=== PATIENT | female | born 1990 | race Caucasian/White ===

== ENCOUNTER 2018-06-21 09:42 | Inpatient (IN) | payer MEDICAID ==
[~2018-06-21] VITALS: Ht 144.8 cm; Wt 69.0 kg
[~2018-06-21 09:42] MED LIST: FERR27TA PO; PREN1TAB49 PO
[2018-06-21 10:02] VITALS: Ht 144.8 cm; Wt 69.0 kg
[2018-06-21] MEDS: LACTATED RINGER'S 1,000 ML IV SCH ×2 (10:39→23:00)
[2018-06-21] MEDS ORDERED: LIDOCAINE 1% (MPF) 30 ML INJ INJ PRN (11:00)
[2018-06-21] MEDS ORDERED: AMPICILLIN 2 GM/NS (PMX) 100 ML IV ONE (11:00)
[2018-06-21] MEDS ORDERED: CARBOPROST 250 MCG INJ IM PRN ×2 (11:00→18:30)
[2018-06-21] MEDS ORDERED: METHYLERGONOVINE 0.2 MG INJ IM PRN (11:00)
[2018-06-21] MEDS ORDERED: BUTORPHANOL 2 MG INJ IV PRN (11:00)
[2018-06-21] MEDS ORDERED: MISOPROSTOL 200 MCG TAB PR PRN ×2 (11:00→18:30)
[2018-06-21] MEDS ORDERED: OXYTOCIN 30 UNITS/LR 500 ML IV PRN ×2 (11:00→18:30)
[2018-06-21] MEDS ORDERED: OXYTOCIN 30 UNITS/LR 500 ML IV SCH ×2 (11:00)
[2018-06-21] MEDS: AMPICILLIN 1 GM/NS (PMX) 50 ML IV SCH ×3 (14:30→22:30)
--- NOTE | 2018-06-21 18:08 | HP ---
Date/Time of Note Date/Time of Note DATE: 06/21/18 TIME: 18:06 OB - History Hx of Present Free Text/Dictation 27 YO with IUP at 39 weeks with EDC 06/22/2018 who presented in labor Care: Good Care Ultrasounds: Normal mid trimester US Obstetrical Complications: None Medical Complications: None Past Family/Social History * Past Medical, Surgical, Family and Obstetric Histories reviewed from chart. OB Admission Exam Physical Exam HEENT: WNL Heart: Rhythm Normal Lungs: Clear, Equal Abdomen: WNL Extremities: Normal Reflexes: Normal Cervical Dilatation: 10cm Last 72 hours Lab Results CBC & BMP 06/21/18 10:00 OB Assessment/Plan Reason for admission: active labor Plan: Expectant Management MONTEZ BASILIO MD Jun 21, 2018 18:08
--- NOTE | 2018-06-21 18:13 | LDN ---
Date/Time of Note Date/Time of Note DATE: 06/21/18 TIME: 18:08 Delivery Summary 27 YO with IUP at 39 weeks with EDC 06/26/2018 s/p of viable female (Laborist attended while i was driving to hospital) Placenta Delivered: Spontaneously Episiotomy: No Perineal laceration: 1 Laceration repair: first degree vaginal laceration was repaired with 3-0 Vicryl Anesthesia type: Local Estimated blood loss: 150 Sponge & Needle done & correct: Yes All needle counts correct: Yes Any foreign bodies felt in the: No Delivery Information Sex Infant Sex: female Apgars 1 Minute: 8 5 Minute: 9 Suctioning Nose & mouth suctioned at arjun: No Delee suction performed: No Infant Delivery Information Sex Sex: female Apgars 1 Minute: 8 5 Minute: 9 Suctioning Nose & mouth suctioned at arjun: No Delee suction performed: No Umbilical Cord Umbilical cord with: 3 Vessels Cord presentations: no nuchal cord Nuchal cord present X: 150 Cord Blood was obtained: Yes Mother & Baby Disposition Disposition Mom & Baby to Maternity; Good: Yes MONTEZ BASILIO MD Jun 21, 2018 18:13
[2018-06-21] MEDS ORDERED: NA PHOSPHATE/BIPHOS 133 ML ENEMA PR PRN (18:30)
[2018-06-21] MEDS ORDERED: ONDANSETRON 4 MG INJ IV PRN (18:30)
[2018-06-21] MEDS ORDERED: LANOLIN HPA 1 PKT TOP PRN (18:30)
[2018-06-21] MEDS ORDERED: DIBUCAINE 1% 30 GM OINT TOP PRN (18:30)
[2018-06-21] MEDS ORDERED: DIPHENHYDRAMINE 25 MG CAP PO PRN (18:30)
[2018-06-21] MEDS ORDERED: MAGNESIUM HYDROXIDE 30ML CUP PO PRN (18:30)
[2018-06-21] MEDS ORDERED: DIPHENHYDRAMINE 50 MG INJ IV PRN (18:30)
[2018-06-21] MEDS ORDERED: HYDROCODONE/APAP (5/325) TAB PO PRN ×2 (18:30)
[2018-06-21] MEDS ORDERED: WITCH HAZEL/GLYCERIN PAD PR PRN (18:30)
[2018-06-21] MEDS ORDERED: SENNA/DOCUSATE NA (8.6MG/50MG) TAB PO PRN (18:30)
[2018-06-21] MEDS ORDERED: ONDANSETRON 4 MG TAB PO PRN (18:30)
[2018-06-21] MEDS ORDERED: BENZOCAINE 20% 56 ML SPRAY TOP PRN (18:30)
[2018-06-21 20:35] VITALS: BP 112/59; PULSE 89; RESP 19
[2018-06-21] MEDS: SENNA/DOCUSATE NA (8.6MG/50MG) TAB PO SCH (21:00)
[2018-06-21] MEDS: LACTATED RINGER'S 1,000 ML IV* SCH (22:37)
[2018-06-21] MEDS: IBUPROFEN 600 MG TAB PO SCH (23:40)
[2018-06-22] VITALS: BP 110/59; PULSE 82; RESP 20
[2018-06-22] MEDS: LACTATED RINGER'S 1,000 ML IV* SCH (02:13)
[2018-06-22] MEDS: AMPICILLIN 1 GM/NS (PMX) 50 ML IV SCH ×2 (02:30→06:30)
[2018-06-22] MEDS: LACTATED RINGER'S 1,000 ML IV SCH (02:31)
[2018-06-22 04:00] VITALS: BP 100/59; PULSE 68; RESP 20
[2018-06-22] MEDS: IBUPROFEN 600 MG TAB PO SCH ×4 (05:15→23:46)
[2018-06-22 08:30] VITALS: BP 92/48; PULSE 73; RESP 18
[2018-06-22] MEDS: SENNA/DOCUSATE NA (8.6MG/50MG) TAB PO SCH ×2 (08:35→21:25)
--- NOTE | 2018-06-22 15:17 | QN ---
Documentation Comment no c/o no B.M fundus firm calf neg for tenderness lochia min A s/p #1 P as ordered FLAKO PRO MD Jun 22, 2018 15:17
[2018-06-22 16:08] VITALS: BP 99/54; PULSE 68; RESP 18
[2018-06-22 19:50] VITALS: BP 120/61; PULSE 76; RESP 18
[2018-06-23 04:15] VITALS: BP 98/55; PULSE 71; RESP 18
[2018-06-23] MEDS: IBUPROFEN 600 MG TAB PO SCH ×2 (06:00→12:00)
[2018-06-23 08:00] VITALS: BP 94/50; PULSE 71; RESP 18
[2018-06-23] MEDS ORDERED: VARICELLA VACCINE LIVE/PF 1,350 UNIT/0.5 ML ML SC* ONE (09:00)
[2018-06-23] MEDS ORDERED: DIPHTH/TET/ACEL PERTUSS (ADULT) 0.5 ML VIAL IM* ONE (09:00)
[2018-06-23] MEDS ORDERED: MEASLES,MUMPS,RUBELLA VACCINE INJ SC* ONE (09:00)
[2018-06-23] MEDS: SENNA/DOCUSATE NA (8.6MG/50MG) TAB PO SCH (09:00)
--- NOTE | 2018-06-23 13:41 | QN ---
Documentation Comment day #2 Patient stable and afebrile Vital signs stable VS - Last 72 Hours, by Label Date Temp Pulse Resp B/P (MAP) Pulse Ox O2 O2 Flow FiO2 Time Delivery Rate 06/23/18 97.7 71 18 94/50 (65) Room Air 08:00 06/23/18 98.0 71 18 98/55 (69) Room Air 04:15 06/22/18 98.0 76 18 120/61 Room Air 19:50 (80) 06/22/18 98.0 68 18 99/54 (69) Room Air 16:08 06/22/18 98.4 73 18 92/48 (63) Room Air 08:30 06/22/18 98.3 68 20 100/59 Room Air 04:00 (73) 06/22/18 98.2 82 20 110/59 Room Air 00:00 (76) 06/21/18 98.3 89 19 112/59 Room Air 20:35 (76) Hematology - 72 Hrs Test 06/21/18 10:00 06/22/18 04:29 Hematocrit 34.3 % (37.0-47.0) L 31.7 % (37.0-47.0) L Hemoglobin 11.6 g/dl (12.0-16.0) L 10.9 g/dl (12.0-16.0) L Mean Corpuscular 30.4 pg (29.0-33.0) 30.8 pg (29.0-33.0) Hemoglobin Mean Corpuscular 33.8 g/dl (32.0-37.0) 34.4 g/dl (32.0-37.0) Hemoglobin Concent Mean Corpuscular Volume 90.0 fl (82.0-101.0) 89.5 fl (82.0-101.0) Mean Platelet Volume 9.8 fl (7.4-10.4) 10.5 fl (7.4-10.4) H Platelet Count 189 10^3/UL (140-415) 199 10^3/UL (140-415) Red Blood Count 3.81 10^6/ul (4.20-5.40) 3.54 10^6/ul (4.20-5.40) L L Red Cell Distribution 12.6 % (11.5-14.5) 12.5 % (11.5-14.5) Width White Blood Count 8.4 10^3/ul (4.8-10.8) 12.5 10^3/ul (4.8-10.8) #H Abdomen soft, fundus firm Perineum intact Extremities nontender Assessment and plan Patient stable and doing well Instructed to continue with vitamins and iron Discharge home today Follow-up with clinic in 2 and 6 weeks NORTH COPE MD Jun 23, 2018 13:41
--- NOTE | 2018-06-23 13:43 | DS ---
Date/Time of Note Date/Time of Note DATE: 06/23/18 TIME: 13:41 Obstetrical Discharge Record Final Diagnosis Final Diagnosis: Term delivered Vaginal Delivery Obstetrical Delivery: Spontaneous Condition on Discharge Physical Assessment Last Vitals: VS - Last 72 Hours, by Label Date Temp Pulse Resp B/P (MAP) Pulse Ox O2 O2 Flow FiO2 Time Delivery Rate 06/23/18 97.7 71 18 94/50 (65) Room Air 08:00 06/23/18 98.0 71 18 98/55 (69) Room Air 04:15 06/22/18 98.0 76 18 120/61 Room Air 19:50 (80) 06/22/18 98.0 68 18 99/54 (69) Room Air 16:08 06/22/18 98.4 73 18 92/48 (63) Room Air 08:30 06/22/18 98.3 68 20 100/59 Room Air 04:00 (73) 06/22/18 98.2 82 20 110/59 Room Air 00:00 (76) 06/21/18 98.3 89 19 112/59 Room Air 20:35 (76) Voiding: Yes Bowel Movement: Yes Breast: Soft, non-tender Fundus: Firm Calf Tenderness: No Patient Condition: Good Copies To: CC: MONTEZ BASILIO MD ; NORTH COPE MD Jun 23, 2018 13:43
== END 2018-06-23 16:30 | disposition home or self-care (01) | DRG 807 ==
LOC: OBT 09:42 → L-D 09:42 → OBT 09:58 → L-D 10:20 → MS1 20:37
PROVIDERS: ADMIT Specialist; ATTEND Specialist
PROC: 10E0XZZ Delivery of Products of Conception, External Approach (ICD-10-PCS; principal; 2018-06-21)
PROC: 0HQ9XZZ Repair Perineum Skin, External Approach (ICD-10-PCS; 2018-06-21)
DX: O70.0 First degree perineal laceration during delivery (principal); Z37.0 Single live birth; Z3A.39 39 weeks gestation of pregnancy
CPT/HCPCS: 76815; 84112; 85025; 85610; 85730; 86592; 86850; 86900; 86901; 87340; 90715; 90716; G0463; J0290; J2590; J7120